=== PATIENT | male | born 1930 | race Caucasian/White ===

== ENCOUNTER 2018-01-08 16:28 | Inpatient (IN) | payer MEDICARE, OTHER ==
[~2018-01-08] VITALS: Ht 162.6 cm; Wt 48.8 kg
--- NOTE | 2018-01-08 17:40 | PD ---
HPI Chief Complaint: Psychiatric Time Seen by Provider: 17:22 Travel History International Travel<30 days: No Contact w/Intl Traveler<30days: No Traveled to known affect area: No History of Present Illness HPI 87-year-old male was brought in by Police Department for psychiatric evaluation. Patient was reportedly Bajwa acted. Patient's states that patient has history of dementia and hypertension. Patient has not taken his medications for the past few months. Patient has been combative and threatening behavior to his Since September last year. Patient's moved out. Patient lives alone by himself. Patient lis came in town today. Patient's zakon and patient's came to see the patient today and patient was combative and threatening to both of them. Police Department was called. Patient was Bajwa acted and brought in for evaluation. No reported alcohol or drug abuse. Patient is not on any routine medication. [facility] Social History Tobacco Use: No Allergies-Medications (Allergen,Severity, Reaction): Coded Allergies: No Known Allergies (Unverified , 01/08/18) Reported Meds & Prescriptions Reported Meds & Active Scripts Active Reported Lorazepam 0.5 Mg Tab 0.5 Mg PO Q6H PRN Review of Systems General / Constitutional: No: Fever Eyes: No: Visual changes HENT: No: Headaches Cardiovascular: No: Chest Pain or Discomfort Respiratory: No: Shortness of Breath Gastrointestinal: No: Abdominal Pain Genitourinary: No: Dysuria Musculoskeletal: No: Pain Skin: No Rash Neurologic: No: Weakness Psychiatric: No: Depression Endocrine: No: Polydipsia Hematologic/Lymphatic: No: Easy Bruising Physical Exam Narrative GENERAL: Well-nourished, well-developed patient. SKIN: Focused skin assessment warm/dry. HEAD: Normocephalic. EYES: No scleral icterus. No injection or drainage. Pupils 2 mm equal reactive. NECK: Supple, trachea midline. No JVD or lymphadenopathy. CARDIOVASCULAR: Regular rate and rhythm without murmurs, gallops, or rubs. RESPIRATORY: Breath sounds equal bilaterally. No accessory muscle use. GASTROINTESTINAL: Abdomen soft, non-tender, nondistended. MUSCULOSKELETAL: No cyanosis, or edema. BACK: Nontender without obvious deformity. No CVA tenderness. Neurologic exam: Patient knows his name. Patient is confused about her location and date. Patient moves all extremity well. No obvious focal neurological deficit. Data Data Last Documented VS Vital Signs Date Time Temp Pulse Resp B/P (MAP) Pulse Ox O2 Delivery O2 Flow Rate FiO2 01/08/18 18:26 75 16 175/79 (111) 100 Room Air Orders Orders Complete Blood Count With Diff (01/08/18 17:26) Comprehensive Metabolic Panel (01/08/18 17:26) Thyroid Stimulating Hormone (01/08/18 17:26) Urinalysis - C+S If Indicated (01/08/18 17:26) Psych Screen (01/08/18 17:26) Drug Screen, Random Urine (01/08/18 17:26) Haloperidol Inj (Haldol Inj) (01/08/18 18:00) Lorazepam Inj (Ativan Inj) (01/08/18 18:00) Admit Order (Ed Use Only) (01/08/18 21:03) Labs Laboratory Tests Test 01/08/18 19:50 White Blood Count 5.1 TH/MM3 Red Blood Count 4.61 MIL/MM3 Hemoglobin 14.5 GM/DL Hematocrit 43.3 % Mean Corpuscular Volume 93.9 FL Mean Corpuscular Hemoglobin 31.4 PG Mean Corpuscular Hemoglobin Concent 33.4 % Red Cell Distribution Width 13.2 % Platelet Count 195 TH/MM3 Mean Platelet Volume 8.7 FL Neutrophils (%) (Auto) 61.3 % Lymphocytes (%) (Auto) 23.8 % Monocytes (%) (Auto) 13.0 % Eosinophils (%) (Auto) 1.5 % Basophils (%) (Auto) 0.4 % Neutrophils # (Auto) 3.1 TH/MM3 Lymphocytes # (Auto) 1.2 TH/MM3 Monocytes # (Auto) 0.7 TH/MM3 Eosinophils # (Auto) 0.1 TH/MM3 Basophils # (Auto) 0.0 TH/MM3 CBC Comment DIFF FINAL Differential Comment Blood Urea Nitrogen 22 MG/DL Creatinine 0.92 MG/DL Random Glucose 81 MG/DL Total Protein 7.7 GM/DL Albumin 4.1 GM/DL Calcium Level 9.3 MG/DL Alkaline Phosphatase 44 U/L Aspartate Amino Transf (AST/SGOT) 18 U/L Alanine Aminotransferase (ALT/SGPT) 16 U/L Total Bilirubin 0.9 MG/DL Sodium Level 137 MEQ/L Potassium Level 3.8 MEQ/L Chloride Level 99 MEQ/L Carbon Dioxide Level 29.1 MEQ/L Anion Gap 9 MEQ/L Estimat Glomerular Filtration Rate 78 ML/MIN Thyroid Stimulating Hormone 3rd Gen 2.930 uIU/ML MDM Medical Decision Making Medical Screen Exam Complete: Yes Emergency Medical Condition: Yes Interpretation(s) 2056. CBC within normal limits. CMP within normal limits. TSH normal. Differential Diagnosis Differential diagnosis including dementia, psychosis, schizophrenia. Narrative Course 87-year-old male was Bajwa acted for combative, threatening behavior to the family members. Patient has history of dementia and hypertension. Patient is not on any medication. 2056. Patient is medically cleared for psychiatric evaluation. Alex Frank MD Jan 08, 2018 17:40
[2018-01-08] MEDS ORDERED: HALOPERIDOL LACTATE 5 MG/ML AMP IM ONE (18:00)
[2018-01-08] MEDS ORDERED: LORazepam 2 MG/ML VIAL IM ONE (18:00)
[2018-01-08] MEDS ORDERED: LORA0.5T PO (18:16)
[2018-01-08 18:26] VITALS: BP 175/79; PULSE 75; RESP 16; O2SAT 100
[2018-01-08 20:20] LABS: AUTOMATED NEUTROPHIL # 3.1 TH/MM3 (1.8-7.7); BASOPHIL % 0.4 % (0.0-2.0); EOSINOPHIL # 0.1 TH/MM3 (0-0.4); EOSINOPHIL % 1.5 % (0.0-4.0); HEMATOCRIT 43.3 % (39.0-51.0); HEMOGLOBIN 14.5 GM/DL (13.0-17.0); LYMPH % 23.8 % (9.0-44.0); LYMPHOCYTE # 1.2 TH/MM3 (1.0-4.8); MEAN CELL VOLUME 93.9 FL (80.0-100.0); MEAN CORPUSCULAR HEMOGLOBIN 31.4 PG (27.0-34.0); MEAN CORPUSCULAR HGB CONC 33.4 % (32.0-36.0); MEAN PLATELET VOLUME 8.7 FL (7.0-11.0); MONOCYTE # 0.7 TH/MM3 (0-0.9); NEUT % 61.3 % (16.0-70.0); PLATELET COUNT 195 TH/MM3 (150-450); RED BLOOD COUNT 4.61 MIL/MM3 (4.50-5.90); RED CELL DISTRIBUTION WIDTH 13.2 % (11.6-17.2); WHITE BLOOD COUNT 5.1 TH/MM3 (4.0-11.0)
[2018-01-08 20:36] LABS: ALBUMIN 4.1 GM/DL (3.4-5.0); AST (GOT) 18 U/L (15-37); BICARBONATE 29.1 MEQ/L (21.0-32.0); BLOOD UREA NITROGEN 22 MG/DL (7-18); CALCIUM 9.3 MG/DL (8.5-10.1); CHLORIDE 99 MEQ/L (98-107); CREATININE 0.92 MG/DL (0.60-1.30); GLOMERULAR FILTRATION RATE 78 ML/MIN (>89); GLUCOSE,RANDOM 81 MG/DL (74-106); SODIUM (NA) 137 MEQ/L (136-145)
[2018-01-08 20:37] LABS: ALT (GPT) 16 U/L (12-78)
[2018-01-08 20:46] LABS: ALKALINE PHOSPHATASE 44 U/L (45-117); TOTAL BILIRUBIN ADULT 0.9 MG/DL (0.2-1.0); TOTAL PROTEIN 7.7 GM/DL (6.4-8.2)
[2018-01-08 21:58] LABS: AMORPHOUS SEDIMENT, URINE RARE; BILIRUBIN, URINE NEG (NEG); BLOOD, URINE NEG (NEG); GLUCOSE,URINE NEG (NEG); KETONE, URINE 40 mg/dL (NEG); MUCUS URINE FEW /lpf (OCC); NITRITE,URINE NEG (NEG); SQUAMOUS EPITHELIAL CELL URINE 1 /hpf (0-5); URINE COLOR YELLOW (YELLW/STRAW); URINE LEUKOCYTE ESTERASE NEG (NEG)
[2018-01-08] MEDS ORDERED: LORazepam 0.5 MG TAB age > 65 yrs PO PRN (22:30)
[2018-01-08] MEDS ORDERED: ALUMINUM/MAGNESIUM/SIMETH 30 ML CUP PO PRN (22:30)
[2018-01-08] MEDS ORDERED: MAGNESIUM HYDROXIDE SUSP 30 ML CUP PO PRN (22:30)
[2018-01-08] MEDS ORDERED: LORazepam 2 MG/ML VIAL - age > 65 yrs IM PRN (22:30)
[2018-01-08] MEDS ORDERED: ACETAMINOPHEN 325 MG TAB PO PRN (22:30)
[2018-01-08 22:33] VITALS: BP 137/69; PULSE 71; RESP 19; TEMP 98.1; O2SAT 99
[2018-01-09 05:55] VITALS: BP 141/72; PULSE 69; RESP 19; TEMP 98.1; O2SAT 96
[2018-01-09 11:59] LABS: CHOLESTEROL 180 MG/DL (120-200); TRIGLYCERIDES 89 MG/DL (42-150)
[2018-01-09 12:00] LABS: CHOLESTEROL/ HDL RATIO 2.78 RATIO; HDL CHOLESTEROL 64.7 MG/DL (40.0-60.0); LDL CHOLESTEROL 98 MG/DL (0-99)
--- NOTE | 2018-01-09 12:18 | HHI.HP ---
Provisional Diagnosis Admission Date Jan 08, 2018 at 21:04 [place] I. Dementia and other disease with behavioral disturbance FiO2 0.81, Alzheimer's disease late onset g 30.1 Certification of Person's Competence To Provide Express and Informed Consent I have personally examined Hossein Bond , a person being served at [facility] on, Jan 09, 2018 12:04. Express and informed consent means consent voluntarily given in writing, by a competent person, after sufficient explanation and disclosure of the subject matter involved to enable the person to make a knowing and willful decision without any element of force, fraud, deceit, duress, or other form of constraint or coercion. This person is 18 years of age or older, is not now known to be incompetent to consent to treatment with a guardian advocate, and does not have a health care surrogate or proxy currently making medical treatment decisions. I have found this person to be one of the following: [] Competent to provide express and informed consent, as defined above, for voluntary admission to this facility and is competent to provide express and informed consent for treatment. He/she has the consistent capacity to make well reasoned, willful, and knowing decisions concerning his or her medical or mental health treatment. The person fully and consistently understands the purpose of the admission for examination/placement and is fully capable of personally exercising all rights [place]xxxx] Incompetent to provide express and informed consent to voluntary admission, and this is incompetent to provide express and informed consent to treatment. The person must be transferred to involuntary status and a petition for a guardian advocate filed with the Circuit Court. [] Refusing to provide express and informed consent to voluntary admission but is competent to provide express and informed consent for treatment. The person must be discharged or transferred to involuntary status. Form shall be completed within 24 hours of a person's arrival at the receiving facility and filed in the clinical record of each person: 1. Admitted on a voluntary basis 2. Permitted to provide express and informed consent to his/her own treatment 3. Allowed to transfer from involuntary to voluntary status 4. Prior to permitting a person to consent to his or her own treatment after having been previously found incompetent to consent to treatment. History of Present Illness Capacity: Lacks Capacity Psych Chief Complaint: patient demented with assaultive behavior HPI Patient is an 87-year-old male who comes her under Bajwa act. That states "court ordered". It appears there is a court order allowing patient's what appears is his guardian have him placed in a local custodial. However I also appears patient has been showing increased confusion and his home. This has been going on for a period of time and was serious enough and threatening enough the patient's that she did move out. However she and a son came back to the home of the patient is living and notices to be marked disarray nearly uninhabitable. And the patient more confused aggressive towards his . Patient seen screened in the ED, urine toxicology negative. Patient medically 2600. Patient seen on the unit with nurse Lizzy. Is a thin slender somewhat disheveled male sitting in Lisa chair he is alert oriented only to self angry irritable demanding to be discharged being quite disrespectful and somewhat scatological towards his . He does not remember any significant behaviors that led to this hospitalization. It appears she has been carrying a diagnosis of dementia for a period of time. There is no further history with this patient of alcohol or drug use, past psychiatric history. We do need to contact patient's family to gain further information. Thus at this time patient does meet criteria for involuntary psychiatric hospitalization of the Bajwa act I'll do first opinion request second opinion. I feel patient does not have capacity thus I'll ask for healthcare surrogate and a guardian advocate. We will have hospitalist also consult with us. Review of Systems ROS Limitations: Altered Mental Status Past Psych History Violence risk - others (6 mos) Patient is been aggressive and assaultive towards Violence risk - self (6 mos) Low Substance Abuse History Drugs/Alcohol past 12 months Denies at this time though verification from family would be appreciated Past Family Social History Coded Allergies: No Known Allergies (Unverified , 01/08/18) Reported Medications Lorazepam (Lorazepam) 0.5 Mg Tab, 0.5 MG PO Q6H Y for ANXIETY, TAB 0 Refills 01/08/18 Current Medications Medications (Trade) Dose Ordered Sig/Candice Route Start Time Stop Time Status Last Admin (Ativan) 0.5 mg Q12H PRN PO 01/08/18 22:30 Future Hold (Ativan Inj) 0.5 mg Q12H PRN IM 01/08/18 22:30 Future Hold (Tylenol) 650 mg Q4H PRN PO 01/08/18 22:30 (Milk Of Magnesia Liq) 30 ml DAILY PRN PO 01/08/18 22:30 (Mag-Al Plus Susp Liq) 30 ml Q6H PRN PO 01/08/18 22:30 Family Psych History Unknown at this time due to patient's dementia Social History Patient is but his does live separately due to his aggressive behavior it appears she is been unable to care for himself independently Patient's Strengths (min. 2) Patient with supportive family able to access healthcare Physical Exam Patient medically cleared through ED at the present time patient sitting quietly in Lisa chair in the day room is in no acute distress, is in no respiratory distress, no complaints of abdominal pain. Is moving upper extremities without difficulty does move lower extremities was sitting in Lisa chair Vital Signs Vital Signs Date Time Temp Pulse Resp B/P (MAP) Pulse Ox O2 Delivery O2 Flow Rate FiO2 01/09/18 05:55 98.1 69 19 141/72 (95) 96 01/08/18 18:26 Room Air Lab Results Test 01/08/18 19:50 01/08/18 21:15 01/09/18 10:10 White Blood Count 5.1 TH/MM3 Red Blood Count 4.61 MIL/MM3 Hemoglobin 14.5 GM/DL Hematocrit 43.3 % Mean Corpuscular Volume 93.9 FL Mean Corpuscular Hemoglobin 31.4 PG Mean Corpuscular Hemoglobin Concent 33.4 % Red Cell Distribution Width 13.2 % Platelet Count 195 TH/MM3 Mean Platelet Volume 8.7 FL Neutrophils (%) (Auto) 61.3 % Lymphocytes (%) (Auto) 23.8 % Monocytes (%) (Auto) 13.0 % Eosinophils (%) (Auto) 1.5 % Basophils (%) (Auto) 0.4 % Neutrophils # (Auto) 3.1 TH/MM3 Lymphocytes # (Auto) 1.2 TH/MM3 Monocytes # (Auto) 0.7 TH/MM3 Eosinophils # (Auto) 0.1 TH/MM3 Basophils # (Auto) 0.0 TH/MM3 CBC Comment DIFF FINAL Differential Comment Blood Urea Nitrogen 22 MG/DL Creatinine 0.92 MG/DL Random Glucose 81 MG/DL Total Protein 7.7 GM/DL Albumin 4.1 GM/DL Calcium Level 9.3 MG/DL Alkaline Phosphatase 44 U/L Aspartate Amino Transf (AST/SGOT) 18 U/L Alanine Aminotransferase (ALT/SGPT) 16 U/L Total Bilirubin 0.9 MG/DL Sodium Level 137 MEQ/L Potassium Level 3.8 MEQ/L Chloride Level 99 MEQ/L Carbon Dioxide Level 29.1 MEQ/L Anion Gap 9 MEQ/L Estimat Glomerular Filtration Rate 78 ML/MIN Thyroid Stimulating Hormone 3rd Gen 2.930 uIU/ML Urine Color YELLOW Urine Turbidity CLEAR Urine pH 5.0 Urine Specific [place] 1.022 Urine Protein NEG mg/dL Urine Glucose (UA) NEG mg/dL Urine Ketones 40 mg/dL Urine Occult Blood NEG Urine Nitrite NEG Urine Bilirubin NEG Urine Urobilinogen LESS THAN 2.0 MG/DL Urine Leukocyte Esterase NEG Urine RBC 1 /hpf Urine WBC 1 /hpf Urine Squamous Epithelial Cells 1 /hpf Urine Amorphous Sediment RARE Urine Mucus FEW /lpf Microscopic Urinalysis Comment CULT NOT INDICATED Urine Opiates Screen NEG Urine Barbiturates Screen NEG Urine Amphetamines Screen NEG Urine Benzodiazepines Screen NEG Urine Cocaine Screen NEG Urine Cannabinoids Screen NEG Triglycerides Level 89 MG/DL Cholesterol Level 180 MG/DL LDL Cholesterol 98 MG/DL HDL Cholesterol 64.7 MG/DL Cholesterol/HDL Ratio 2.78 RATIO Mental Status Examination Appearance: Disheveled Consciousness: Alert Orientation: Person (vaguely) Motor Activity: Other (patient sitting in Lisa chair) Speech: Hesitant Language: Other (sparse) Fund of Knowledge: Poor Attention and Concentration: Easily Distracted Memory: Impaired Mood: Irritable Affect: Other (slight increase in range and intensity) Thought Process & Associations: Disorganized Thought Content: Bizarre thinking Hallucination Type: None Delusion Type: None Suicidal Ideation: No Suicidal Plan: No Suicidal Intention: No Homicidal Ideation: No Homicidal Plan: No Homicidal Intention: No Insight: Poor Judgment: Poor Assessment & Plan Problem List: (1) DEMENTIA IN OTH DISEASES CLASSD ELSWHR W BEHAVIORAL DISTURB ICD Codes: F02.81 - DEMENTIA IN OTH DISEASES CLASSD ELSWHR W BEHAVIORAL DISTURB (2) ALZHEIMER'S DISEASE WITH LATE ONSET ICD Codes: G30.1 - ALZHEIMER'S DISEASE WITH LATE ONSET Assessment & Plan Estimated LOS 5-7 days this time patient meets Bajwa criteria I'll do first opinion request second opinion, I also feel he does not have capacity thus I'll ask for healthcare surrogate and guardian advocate. We will have hospitalist's consult with us. Also PT and OT. Will need to give further information from patient's concerning patient's history behaviors and placement issues Discharge Planning To be determined after consultation with family Request HC Surrog/Guard Advoc?: Yes Sujit Kinsey MD Jan 09, 2018 12:18
[2018-01-09] MEDS ORDERED: cloNIDine HCL 0.1 MG TAB PO PRN (12:30)
--- NOTE | 2018-01-09 13:36 | PD.CONS ---
HPI Service [facility] Consult Requested By Dr. Sujit Kinsey Reason for Consult Help with medical management Primary Care Physician Elpidio Shukla M.D. Diagnoses: (1) Hypertension (2) ALZHEIMER'S DISEASE WITH LATE ONSET (3) DEMENTIA IN OTH DISEASES CLASSD ELSWHR W BEHAVIORAL DISTURB History of Present Illness Patient is an 87-year-old male who was brought in initially under Bajwa act that was court ordered. Patient has an increasing confusion and altered mental status. Per chart review it appears that he has dementia. And had been having aggressive behavior Has history of hypertension and dementia per chart review Was not on any current medications prior to coming into the hospital per chart review Review of Systems ROS Limitations: Altered Mental Status, Poor Historian Constitutional: DENIES: Diaphoretic episodes, Fatigue, Fever, Weight gain, Weight loss, Chills, Dizziness Endocrine: DENIES: Heat/cold intolerance, Polydipsia Eyes: DENIES: Blurred vision Ears, nose, mouth, throat: DENIES: Tinnitus, Hearing loss Respiratory: DENIES: Apneas, Cough, Snoring Cardiovascular: DENIES: Chest pain, Palpitations, Syncope Gastrointestinal: DENIES: Abdominal pain, Black stools Genitourinary: DENIES: Sexual dysfunction, Urinary frequency Musculoskeletal: DENIES: Joint pain, Muscle aches, Stiffness Integumentary: DENIES: Abnormal pigmentation, Nail changes Hematologic/lymphatic: DENIES: Bruising, Lymphadenopathy Immunologic/allergic: DENIES: Eczema, Urticaria Neurologic: DENIES: Abnormal gait, Headache, Localized weakness Psychiatric: COMPLAINS OF: Anxiety, Confusion, Mood changes, Agitation, DENIES : Depression, Hallucinations, Suicidal Ideation, Homicidal Ideation Past Family Social History Allergies: Coded Allergies: No Known Allergies (Unverified , 01/08/18) Past Medical History Hypertension and dementia per chart review Past Surgical History Unknown not obtainable from patient Reported Medications Reported Meds & Active Scripts Active Reported Lorazepam 0.5 Mg Tab 0.5 Mg PO Q6H PRN Active Ordered Medications Current Medications Haloperidol Lactate (Haldol Inj) 5 mg ONCE ONCE IM Last administered on at 19:59; Start 01/08/18 at 18:00; Stop 01/08/18 at 18:01; Status DC Lorazepam (Ativan Inj) 2 mg ONCE ONCE IM Last administered on 01/08/18at 19:59 ; Start 01/08/18 at 18:00; Stop 01/08/18 at 18:01; Status DC Lorazepam (Ativan) 0.5 mg Q12H PRN PO MODERATE TO SEVERE ANXIETY; Start at 22:30; Status Future Hold Lorazepam (Ativan Inj) 0.5 mg Q12H PRN IM MODERATE TO SEVERE ANXIETY; Start at 22:30; Status Future Hold Acetaminophen (Tylenol) 650 mg Q4H PRN PO Pain 1-5 or Temp >101F; Start at 22:30 Magnesium Hydroxide (Milk Of Magnesia Liq) 30 ml DAILY PRN PO CONSTIPATION; Start 01/08/18 at 22:30 Al Hydrox/Mg Hydrox/Simethicone (Mag-Al Plus Susp Liq) 30 ml Q6H PRN PO DYSPEPSIA; Start 01/08/18 at 22:30 Trazodone HCl (Desyrel) 50 mg HS PRN PO INSOMNIA; Start 01/09/18 at 12:00 Clonidine (Catapres) 0.1 mg Q4H PRN PO SBP>160, DBP>90; Start 01/09/18 at 12:30 Family History Unknown patient not able to give any information Both mother and father are Social History Does not smoke does not drink denies any illicit Physical Exam Vital Signs Vital Signs Date Time Temp Pulse Resp B/P (MAP) Pulse Ox O2 Delivery O2 Flow Rate FiO2 01/09/18 05:55 98.1 69 19 141/72 (95) 96 01/08/18 22:33 98.1 71 19 137/69 (91) 99 01/08/18 18:26 75 16 175/79 (111) 100 Room Air Physical Exam GENERAL: This is a well-nourished, well-developed patient, in no apparent distress. Patient is sitting in a Lisa chair at this time SKIN: No rashes, ecchymoses or lesions. Cool and dry. HEAD: Atraumatic. Normocephalic. No temporal or scalp tenderness. EYES: Pupils equal round and reactive. Extraocular motions intact. No scleral icterus. No injection or drainage. ENT: Nose without bleeding, purulent drainage or septal hematoma. Throat without erythema, tonsillar hypertrophy or exudate. Uvula midline. Airway patent. NECK: Trachea midline. No JVD or lymphadenopathy. Supple, nontender, no meningeal signs. CARDIOVASCULAR: Regular rate and rhythm without murmurs, gallops, or rubs. RESPIRATORY: Clear to auscultation. Breath sounds equal bilaterally. No wheezes , rales, or rhonchi. GASTROINTESTINAL: Abdomen soft, non-tender, nondistended. No hepato-splenomegaly , or palpable masses. No guarding. MUSCULOSKELETAL: Extremities without clubbing, cyanosis, or edema. No joint tenderness, effusion, or edema noted. No calf tenderness. Negative Homans sign bilaterally. NEUROLOGICAL: Awake and alert. Cranial nerves II through XII intact. Motor and sensory grossly within normal limits. Five out of 5 muscle strength in all muscle groups. Normal speech. Patient is quite demented and altered and not able to answer questions appropriately Insight and judgment is abnormal Mood and behavior is abnormal Laboratory Laboratory Tests Test 01/08/18 19:50 01/08/18 21:15 01/09/18 10:10 White Blood Count 5.1 Red Blood Count 4.61 Hemoglobin 14.5 Hematocrit 43.3 Mean Corpuscular Volume 93.9 Mean Corpuscular Hemoglobin 31.4 Mean Corpuscular Hemoglobin Concent 33.4 Red Cell Distribution Width 13.2 Platelet Count 195 Mean Platelet Volume 8.7 Neutrophils (%) (Auto) 61.3 Lymphocytes (%) (Auto) 23.8 Monocytes (%) (Auto) 13.0 Eosinophils (%) (Auto) 1.5 Basophils (%) (Auto) 0.4 Neutrophils # (Auto) 3.1 Lymphocytes # (Auto) 1.2 Monocytes # (Auto) 0.7 Eosinophils # (Auto) 0.1 Basophils # (Auto) 0.0 CBC Comment DIFF FINAL Differential Comment Blood Urea Nitrogen 22 Creatinine 0.92 Random Glucose 81 Total Protein 7.7 Albumin 4.1 Calcium Level 9.3 Alkaline Phosphatase 44 Aspartate Amino Transf (AST/SGOT) 18 Alanine Aminotransferase (ALT/SGPT) 16 Total Bilirubin 0.9 Sodium Level 137 Potassium Level 3.8 Chloride Level 99 Carbon Dioxide Level 29.1 Anion Gap 9 Estimat Glomerular Filtration Rate 78 Thyroid Stimulating Hormone 3rd Gen 2.930 Urine Color YELLOW Urine Turbidity CLEAR Urine pH 5.0 Urine Specific [place] 1.022 Urine Protein NEG Urine Glucose (UA) NEG Urine Ketones 40 Urine Occult Blood NEG Urine Nitrite NEG Urine Bilirubin NEG Urine Urobilinogen LESS THAN 2.0 Urine Leukocyte Esterase NEG Urine RBC 1 Urine WBC 1 Urine Squamous Epithelial Cells 1 Urine Amorphous Sediment RARE Urine Mucus FEW Microscopic Urinalysis Comment CULT NOT INDICATED Urine Opiates Screen NEG Urine Barbiturates Screen NEG Urine Amphetamines Screen NEG Urine Benzodiazepines Screen NEG Urine Cocaine Screen NEG Urine Cannabinoids Screen NEG Triglycerides Level 89 Cholesterol Level 180 LDL Cholesterol 98 HDL Cholesterol 64.7 Cholesterol/HDL Ratio 2.78 Result Diagram: 01/08/18 1950 01/08/18 1950 Assessment and Plan Assessment and Plan Advanced dementia currently under a Bajwa act will defer to psychiatry Hypertension by history on unknown medications will start on Catapres as needed for blood pressure Try to obtain a home medications and history from family Discussed with RN Patient does not have the capacity to discuss his medical history Increasing confusion We will get a.m. labs and monitor throughout the admission Code Status Full code Discussed Condition With RN and patient unfortunately patient does not have much insight Matt Theodore DO Jan 09, 2018 13:36
[2018-01-09 18:00] VITALS: BP 157/66; PULSE 68; RESP 18; TEMP 97.6; O2SAT 100
[2018-01-09] MEDS ORDERED: LORazepam 2 MG/ML VIAL ONE (18:48)
[2018-01-09 21:00] VITALS: BP 163/71; PULSE 73; RESP 22; TEMP 98; O2SAT 100
[2018-01-09 22:00] VITALS: BP 170/80; PULSE 65; RESP 16; TEMP 97.8; O2SAT 99
--- NOTE | 2018-01-09 22:20 | RADRPT ---
EXAM DATE/TIME: 01/09/2018 21:38 [facility] COMPARISON: No previous studies available for comparison. INDICATIONS : Patient fell , bruising on lateral side of right knee. MEDICAL HISTORY : unobtainable SURGICAL HISTORY : unobtainable ENCOUNTER: Initial ACUITY: 1 day PAIN SCORE: 4/10 LOCATION: Right knee FINDINGS: Two view examination of the right knee demonstrates no evidence of fracture or dislocation. Bony min eralization is normal. The suprapatellar soft tissues have a normal configuration. Vascular calcific ations are seen. There is a smaller calcification seen inferior to the patella. CONCLUSION: No acute abnormality seen. Sujit Loving MD on January 09, 2018 at 22:17 Board Certified Radiologist. This report was verified electronically.
--- NOTE | 2018-01-09 22:20 | RADRPT ---
EXAM DATE/TIME: 01/09/2018 21:40 [facility] COMPARISON: No previous studies available for comparison. INDICATIONS : Patient fell,pain and skin tear on right elbow. MEDICAL HISTORY : unobtainable SURGICAL HISTORY : unobtainable ENCOUNTER: Initial ACUITY: 1 day PAIN SCORE: 4/10 LOCATION: Right elbow FINDINGS: Two view examination of the right elbow demonstrates no soft tissue swelling, joint effusion, fractur e or dislocation. Bony mineralization is normal. CONCLUSION: No acute disease. Sujit Loving MD on January 09, 2018 at 22:18 Board Certified Radiologist. This report was verified electronically.
--- NOTE | 2018-01-09 22:26 | RADRPT ---
EXAM DATE/TIME: 01/09/2018 21:45 [place] COMPARISON: No previous studies available for comparison. INDICATIONS : Trauma; fall, right laceration. RADIATION DOSE: 56.35 CTDIvol (mGy) MEDICAL HISTORY : Dementia. SURGICAL HISTORY : None. ENCOUNTER: Initial ACUITY: 1 day PAIN SCALE: 4/10 LOCATION: cranial TECHNIQUE: Multiple contiguous axial images were obtained of the head. Using automated exposure control and adj ustment of the mA and/or kV according to patient size, radiation dose was kept as low as reasonably a chievable to obtain optimal diagnostic quality images. DICOM format image data is available electro nically for review and comparison. FINDINGS: CEREBRUM: The ventricles and cortical sulci are widened. There is extensive low-density seen throughout the cer ebral white matter. No evidence of midline shift, mass lesion, hemorrhage or acute infarction. No e xtra-axial fluid collections are seen. POSTERIOR FOSSA: The cerebellum and brainstem are intact. The 4th ventricle is midline. The cerebellopontine angle i s unremarkable. EXTRACRANIAL: The visualized portion of the orbits is intact. SKULL: The calvaria is intact. No evidence of skull fracture. CONCLUSION: 1. No acute abnormality. 2. Atrophy. 3. Suspected widespread small vessel ischemic change in the white matter. Sujit Loving MD on January 09, 2018 at 22:23 Board Certified Radiologist. This report was verified electronically.
[2018-01-09 22:40] LABS: HEMOGLOBIN A1C 5.1 % (4.3-6.0)
[2018-01-09 23:00] VITALS: BP 143/66; PULSE 56; RESP 16; TEMP 97.7; O2SAT 98
[2018-01-10] VITALS: BP 135/67; PULSE 63; RESP 16; TEMP 97.4; O2SAT 98
[2018-01-10 05:53] VITALS: BP 129/68; PULSE 81; RESP 16; TEMP 97.6; O2SAT 98
[2018-01-10 07:07] LABS: AUTOMATED NEUTROPHIL # 3.1 TH/MM3 (1.8-7.7); BASOPHIL % 0.4 % (0.0-2.0); EOSINOPHIL # 0.1 TH/MM3 (0-0.4); EOSINOPHIL % 2.5 % (0.0-4.0); HEMATOCRIT 44.5 % (39.0-51.0); HEMOGLOBIN 15.1 GM/DL (13.0-17.0); LYMPH % 22.6 % (9.0-44.0); LYMPHOCYTE # 1.1 TH/MM3 (1.0-4.8); MEAN CELL VOLUME 93.8 FL (80.0-100.0); MEAN CORPUSCULAR HEMOGLOBIN 31.8 PG (27.0-34.0); MEAN CORPUSCULAR HGB CONC 33.9 % (32.0-36.0); MEAN PLATELET VOLUME 8.4 FL (7.0-11.0); MONO % 13.1 % (0.0-8.0); MONOCYTE # 0.7 TH/MM3 (0-0.9); NEUT % 61.4 % (16.0-70.0); PLATELET COUNT 196 TH/MM3 (150-450); RED BLOOD COUNT 4.75 MIL/MM3 (4.50-5.90)
[2018-01-10 07:41] LABS: ALBUMIN 3.8 GM/DL (3.4-5.0); AST (GOT) 24 U/L (15-37); BICARBONATE 30.2 MEQ/L (21.0-32.0); BLOOD UREA NITROGEN 17 MG/DL (7-18); CHLORIDE 104 MEQ/L (98-107); GLOMERULAR FILTRATION RATE 80 ML/MIN (>89); GLUCOSE,RANDOM 92 MG/DL (74-106); MAGNESIUM 2.6 MG/DL (1.5-2.5); SODIUM (NA) 141 MEQ/L (136-145)
[2018-01-10 07:42] LABS: ALT (GPT) 17 U/L (12-78)
[2018-01-10 07:50] LABS: ALKALINE PHOSPHATASE 46 U/L (45-117); FREE T4 1.27 NG/DL (0.76-1.46); TOTAL BILIRUBIN ADULT 1.2 MG/DL (0.2-1.0); TOTAL PROTEIN 7.4 GM/DL (6.4-8.2)
[2018-01-10 14:55] LABS: HEMOGLOBIN A1C 5.1 % (4.3-6.0)
--- NOTE | 2018-01-10 15:20 | HHI.PYPN ---
Subjective Chief Complaint: patient demented with assaultive behavior Remarks Patient seen in day room with nurse Félix, chart reviewed patient compliant medications, patient discussed with nurse. Patient calm pleasant diffusely confused. Or room considering patient's past history with aggressiveness assaultive behavior I feel the addition of a small dose of Seroquel would be appropriate we'll start him on 12.5 mg in a.m. 2 PM and 8 PM. He does denies suicidality of voices though he is oriented only to person Review of Systems Except as stated in HPI: all other systems reviewed are Neg Mental Status Examination Appearance: Disheveled Consciousness: Alert Orientation: Person (vaguely) Motor Activity: Other (patient sitting in Lisa chair) Speech: Hesitant Language: Other (sparse) Fund of Knowledge: Poor Attention and Concentration: Easily Distracted Memory: Impaired Mood: Irritable Affect: Other (slight increase in range and intensity) Thought Process & Associations: Disorganized Thought Content: Bizarre thinking Hallucination Type: None Delusion Type: None Suicidal Ideation: No Suicidal Plan: No Suicidal Intention: No Homicidal Ideation: No Homicidal Plan: No Homicidal Intention: No Insight: Poor Judgment: Poor Results Labs Test 01/10/18 06:44 01/10/18 06:49 Blood Urea Nitrogen 17 MG/DL Creatinine 0.90 MG/DL Random Glucose 92 MG/DL Total Protein 7.4 GM/DL Albumin 3.8 GM/DL Calcium Level 9.0 MG/DL Phosphorus Level 3.0 MG/DL Magnesium Level 2.6 MG/DL Alkaline Phosphatase 46 U/L Aspartate Amino Transf (AST/SGOT) 24 U/L Alanine Aminotransferase (ALT/SGPT) 17 U/L Total Bilirubin 1.2 MG/DL Sodium Level 141 MEQ/L Potassium Level 3.8 MEQ/L Chloride Level 104 MEQ/L Carbon Dioxide Level 30.2 MEQ/L Anion Gap 7 MEQ/L Estimat Glomerular Filtration Rate 80 ML/MIN Free Thyroxine 1.27 NG/DL Thyroid Stimulating Hormone 3rd Gen 1.880 uIU/ML White Blood Count 5.0 TH/MM3 Red Blood Count 4.75 MIL/MM3 Hemoglobin 15.1 GM/DL Hematocrit 44.5 % Mean Corpuscular Volume 93.8 FL Mean Corpuscular Hemoglobin 31.8 PG Mean Corpuscular Hemoglobin Concent 33.9 % Red Cell Distribution Width 13.0 % Platelet Count 196 TH/MM3 Mean Platelet Volume 8.4 FL Neutrophils (%) (Auto) 61.4 % Lymphocytes (%) (Auto) 22.6 % Monocytes (%) (Auto) 13.1 % Eosinophils (%) (Auto) 2.5 % Basophils (%) (Auto) 0.4 % Neutrophils # (Auto) 3.1 TH/MM3 Lymphocytes # (Auto) 1.1 TH/MM3 Monocytes # (Auto) 0.7 TH/MM3 Eosinophils # (Auto) 0.1 TH/MM3 Basophils # (Auto) 0.0 TH/MM3 CBC Comment DIFF FINAL Differential Comment Vitals/IOs Vital Signs Date Time Temp Pulse Resp B/P (MAP) Pulse Ox O2 Delivery O2 Flow Rate FiO2 01/10/18 05:53 97.6 81 16 129/68 (88) 98 01/08/18 18:26 Room Air Assessment & Plan Problem List: (1) DEMENTIA IN OTH DISEASES CLASSD ELSWHR W BEHAVIORAL DISTURB ICD Codes: F02.81 - DEMENTIA IN OTH DISEASES CLASSD ELSWHR W BEHAVIORAL DISTURB (2) ALZHEIMER'S DISEASE WITH LATE ONSET ICD Codes: G30.1 - ALZHEIMER'S DISEASE WITH LATE ONSET Assessment & Plan Estimated LOS: days patient is confused and demented, though no behavior problems noted so far. See medication adjustment above Justification for Cont. Inpt. At this time patient decompensate if not placed in an appropriate level of care Discharge Planning To be determined Request HC Surrog/Guard Advoc?: Yes Sujit Kinsey MD Jan 10, 2018 15:20
[2018-01-10] MEDS ORDERED: PILL SPLITTER OTHER PRN (15:30)
[2018-01-10 15:35] VITALS: BP 130/98
--- NOTE | 2018-01-10 16:31 | HHI.PR ---
Subjective Remarks Follow-up visit dementia, HTN. Patient seen and examined today sitting in a chair. Patient states he is doing okay. Patient went on with story that he has met [facility] in [place]. Patient also complains of a skin tag on his left lateral side. When asked if he wants it to be surgically removed patient states "you do not do that to you?." Discussed that he will be referred to dermatology in outpatient for further evaluation. As per nursing, patient's blood pressure has been elevated. Denies SOB/ dyspnea. Denies chest pain, palpitations, headaches, dizziness. Denies fevers, chills, n/v/d. Objective Vitals Vital Signs Date Time Temp Pulse Resp B/P (MAP) Pulse Ox O2 Delivery O2 Flow Rate FiO2 01/10/18 15:35 130/98 (109) 01/10/18 05:53 97.6 81 16 129/68 (88) 98 01/10/18 00:00 97.4 63 16 135/67 (89) 98 01/09/18 23:00 97.7 56 16 143/66 (91) 98 01/09/18 22:00 97.8 65 16 170/80 (110) 99 01/09/18 21:00 98.0 73 22 163/71 (101) 100 01/09/18 18:00 97.6 68 18 157/66 (96) 100 Result Diagram: 01/10/18 0649 01/10/18 0644 Objective Remarks GENERAL: This is a well-nourished, well-developed patient, in no apparent distress. SKIN: Warm and dry. Left lateral lesion, round, elevated. HEENT: Normocephalic. Pupils equal round and reactive. Nose without bleeding. Airway patent. NECK: Trachea midline. CARDIOVASCULAR: Regular rate and rhythm without murmurs, gallops, or rubs. RESPIRATORY: Clear to auscultation. Breath sounds equal bilaterally. No wheezes , rales, or rhonchi. GASTROINTESTINAL: Abdomen soft, non-tender, nondistended. Bowel Sounds normoactive x4. MUSCULOSKELETAL: Extremities without clubbing, cyanosis, or edema. NEUROLOGICAL: Awake and alert. Oriented to person only. Confuse. Moves all extremities. Normal speech. A/P Problem List: (1) Hypertension ICD Code: I10 - Essential (primary) hypertension (2) ALZHEIMER'S DISEASE WITH LATE ONSET ICD Code: G30.1 - ALZHEIMER'S DISEASE WITH LATE ONSET (3) DEMENTIA IN OTH DISEASES CLASSD ELSWHR W BEHAVIORAL DISTURB ICD Code: F02.81 - DEMENTIA IN OTH DISEASES CLASSD ELSWHR W BEHAVIORAL DISTURB Assessment and Plan An 87-year-old male who was brought in initially under [place] act that was court ordered. Patient has an increasing confusion and altered mental status. He is not admitted to inpatient psychiatry and further evaluation. Consulted for assistance in medical management. Dementia, advanced age -Managed by psychiatry team HTN -Unknown history of HTN however BP trend has been elevated throughout stay -Patient had clonidine as needed -We will start Norvasc 5 mg daily -Monitor BP trend Labs have been reviewed within normal. Hemoglobin A1c 5.1. Cholesterol LDL HDL within normal. DVT prop early ambulation If BP is improved and WNL. Will sign off. Reconsult as needed. Rio Melendez Jan 10, 2018 16:31
[2018-01-10] MEDS: QUEtiapine FUMARATE 25 MG TAB PO SCH (20:50)
[2018-01-11 05:48] VITALS: BP 136/71; PULSE 90; RESP 16; TEMP 97.2; O2SAT 100
[2018-01-11] MEDS: QUEtiapine FUMARATE 25 MG TAB PO SCH ×2 (08:14→21:15)
[2018-01-11] MEDS: amLODIPine BESYLATE 5 MG TAB PO SCH (09:00)
--- NOTE | 2018-01-11 13:22 | HHI.PYPN ---
Subjective Chief Complaint: patient demented with assaultive behavior Remarks Met with patient's and patient's son. And counselor Brianna Patient's is his second who is been to for 48 years. His son is by his first marriage. states that patient show a marked increase in aggression paranoia and anger towards her over the past number of months. Son also verifies this. The also verified that patient is to be a DNR. We also discussed placement. It appears patient will need a more structured environment than can be supplied by [facility]. Patient then seen on unit with nurse Simms, chart reviewed, patient compliant medications, discussed patient with nurse. Patient did have swallow study. The speech therapist his modifying his diet to C for swallowing difficulties. Otherwise patient remains confused though most significant behavior problems. Somewhat focusing on wanting to go home he shows basically no insight into his behaviors Review of Systems Gastrointestinal: COMPLAINS OF: Nausea, Vomiting, Difficulty Swallowing Except as stated in HPI: all other systems reviewed are Neg Mental Status Examination Appearance: Disheveled Consciousness: Alert Orientation: Person (vaguely) Motor Activity: Other (patient sitting in Lisa chair) Speech: Hesitant Language: Other (sparse) Fund of Knowledge: Poor Attention and Concentration: Easily Distracted Memory: Impaired Mood: Irritable Affect: Other (slight increase in range and intensity) Thought Process & Associations: Disorganized Thought Content: Bizarre thinking Hallucination Type: None Delusion Type: None Suicidal Ideation: No Suicidal Plan: No Suicidal Intention: No Homicidal Ideation: No Homicidal Plan: No Homicidal Intention: No Insight: Poor Judgment: Poor Results Vitals/IOs Vital Signs Date Time Temp Pulse Resp B/P (MAP) Pulse Ox O2 Delivery O2 Flow Rate FiO2 01/11/18 05:48 97.2 90 16 136/71 (92) 100 01/08/18 18:26 Room Air Intake and Output 01/11/18 01/11/18 01/12/18 08:00 16:00 00:00 Intake Total 460 ml Balance 460 ml Assessment & Plan Problem List: (1) DEMENTIA IN OTH DISEASES CLASSD ELSWHR W BEHAVIORAL DISTURB ICD Codes: F02.81 - DEMENTIA IN OTH DISEASES CLASSD ELSWHR W BEHAVIORAL DISTURB (2) ALZHEIMER'S DISEASE WITH LATE ONSET ICD Codes: G30.1 - ALZHEIMER'S DISEASE WITH LATE ONSET Assessment & Plan Estimated LOS: days patient remains confused demented though no significant behavioral problems. See adjustments with CODE STATUS , diet, and placement Justification for Cont. Inpt. At this time patient will decompensate and placed a lower level of care Discharge Planning To be determined Request HC Surrog/Guard Advoc?: Yes Sujit Kinsey MD Jan 11, 2018 13:22
[2018-01-11 16:01] VITALS: BP 135/65; PULSE 87; RESP 16; TEMP 97.9; O2SAT 92
[2018-01-11] MEDS: traZODone HCL 50 MG TAB PO PRN (21:16)
[2018-01-12 06:00] VITALS: BP 130/60; PULSE 75; RESP 16; TEMP 98.2; O2SAT 97
[2018-01-12] MEDS: amLODIPine BESYLATE 5 MG TAB PO SCH (09:30)
[2018-01-12] MEDS: QUEtiapine FUMARATE 25 MG TAB PO SCH ×2 (09:31→21:07)
--- NOTE | 2018-01-12 15:04 | HHI.PYPN ---
Subjective Chief Complaint: patient demented with assaultive behavior Remarks Patient was seen and case discussed with nursing. Patient was interviewed in bed. He is alert and oriented 1. He is flat but cooperative during the interview. Grossly confused. He does know his birthdate. His compliant with medications and behaving well on the unit. No aggressive or agitated behavior Mental Status Examination Appearance: Disheveled Consciousness: Alert Orientation: Person (vaguely) Motor Activity: Other (patient sitting in Lisa chair) Speech: Hesitant Language: Other (sparse) Fund of Knowledge: Poor Attention and Concentration: Easily Distracted Memory: Impaired Mood: Irritable Affect: Other (slight increase in range and intensity) Thought Process & Associations: Disorganized Thought Content: Bizarre thinking Hallucination Type: None Delusion Type: None Suicidal Ideation: No Suicidal Plan: No Suicidal Intention: No Homicidal Ideation: No Homicidal Plan: No Homicidal Intention: No Insight: Poor Judgment: Poor Results Vitals/IOs Vital Signs Date Time Temp Pulse Resp B/P (MAP) Pulse Ox O2 Delivery O2 Flow Rate FiO2 01/12/18 06:00 98.2 75 16 130/60 (83) 97 01/08/18 18:26 Room Air Intake and Output 01/12/18 01/12/18 01/13/18 08:00 16:00 00:00 Intake Total 60 ml Balance 60 ml Assessment & Plan Problem List: (1) DEMENTIA IN OTH DISEASES CLASSD ELSWHR W BEHAVIORAL DISTURB ICD Codes: F02.81 - DEMENTIA IN OTH DISEASES CLASSD ELSWHR W BEHAVIORAL DISTURB (2) ALZHEIMER'S DISEASE WITH LATE ONSET ICD Codes: G30.1 - ALZHEIMER'S DISEASE WITH LATE ONSET Assessment & Plan Continue current treatment plan Justification for Cont. Inpt. Patient would decompensate in a less restrictive setting Request HC Surrog/Guard Advoc?: Yes Naeem Renee DO Jan 12, 2018 15:04
[2018-01-12 18:14] VITALS: BP 116/73; PULSE 89; RESP 16; TEMP 98.7; O2SAT 98
[2018-01-12] MEDS: traZODone HCL 50 MG TAB PO PRN (21:07)
[2018-01-13 06:34] VITALS: BP 116/58; PULSE 81; RESP 16; TEMP 97.6; O2SAT 97
[2018-01-13] MEDS: amLODIPine BESYLATE 5 MG TAB PO SCH (07:46)
[2018-01-13] MEDS: QUEtiapine FUMARATE 25 MG TAB PO SCH ×3 (08:14→20:55)
--- NOTE | 2018-01-13 09:11 | HHI.PR ---
Subjective Remarks Patient seen and examined this morning. Temperature 97.6, pulse 18, respiratory rate 16, blood pressure 116/58, pulse ox 97 on room air. No acute events overnight. Patient is doing well. Plan for discharge to rehab facility on Sunday. No medical changes at this time. Objective Vitals Vital Signs Date Time Temp Pulse Resp B/P (MAP) Pulse Ox O2 Delivery O2 Flow Rate FiO2 01/13/18 06:34 97.6 81 16 116/58 (77) 97 01/12/18 18:14 98.7 89 16 116/73 (87) 98 I/O 01/12/18 01/12/18 01/12/18 01/13/18 01/13/18 01/13/18 07:00 15:00 23:00 07:00 15:00 23:00 Intake Total 60 ml 60 ml Balance 60 ml 60 ml Intake Oral 60 ml 60 ml Result Diagram: 01/10/18 0649 01/10/18 0644 Imaging Last Impressions Knee X-Ray 01/09/18 0000 Signed Impressions: Service Date/Time: Tuesday, January 09, 2018 21:38 - CONCLUSION: No acute abnormality seen. Sujit Loving MD Head CT 01/09/18 0000 Signed Impressions: Service Date/Time: Tuesday, January 09, 2018 21:45 - CONCLUSION: 1. No acute abnormality. 2. Atrophy. 3. Suspected widespread small vessel ischemic change in the white matter. Sujit Loving MD Elbow X-Ray 01/09/18 0000 Signed Impressions: Service Date/Time: Tuesday, January 09, 2018 21:40 - CONCLUSION: No acute disease. Sujit Loving MD Objective Remarks GEN: Well-developed, well-nourished patient. No acute distress. CV: Regular rate and rhythm without obvious murmurs LUNGS: Clear to auscultation bilaterally. Normal respiratory effort. No wheezes , rales, rhonchi. GI: Soft, nontender, nondistended. No palpable masses. Bowel sounds WNL. EXT: No edema. NEURO/PSYCH: Afocal. Awake, alert, and oriented x3. Appropriate insight and judgment. Medications and IVs Current Medications Medications (Trade) Dose Ordered Sig/Candice Route Start Time Stop Time Status Last Admin (Ativan) 0.5 mg Q12H PRN PO 01/08/18 22:30 Future hold (Ativan Inj) 0.5 mg Q12H PRN IM 01/08/18 22:30 Future hold 01/09/18 18:49 (Tylenol) 650 mg Q4H PRN PO 01/08/18 22:30 01/13/18 07:47 (Milk Of Magnesia Liq) 30 ml DAILY PRN PO 01/08/18 22:30 (Mag-Al Plus Susp Liq) 30 ml Q6H PRN PO 01/08/18 22:30 (Desyrel) 50 mg HS PRN PO 01/09/18 12:00 01/12/18 21:07 (Catapres) 0.1 mg Q4H PRN PO 01/09/18 12:30 01/10/18 16:00 (SEROquel) 12.5 mg DAILY@ PO 01/10/18 20:00 01/12/18 21:07 (Pill Splitter) 1 ea UNSCH PRN OTHER 01/10/18 15:30 (Norvasc) 5 mg DAILY PO 01/11/18 09:00 01/13/18 07:46 A/P Problem List: (1) Hypertension ICD Code: I10 - Essential (primary) hypertension (2) ALZHEIMER'S DISEASE WITH LATE ONSET ICD Code: G30.1 - ALZHEIMER'S DISEASE WITH LATE ONSET (3) DEMENTIA IN OTH DISEASES CLASSD ELSWHR W BEHAVIORAL DISTURB ICD Code: F02.81 - DEMENTIA IN OTH DISEASES CLASSD ELSWHR W BEHAVIORAL DISTURB Assessment and Plan An 87-year-old male who was brought in initially under [place] act that was court ordered. Patient has an increasing confusion and altered mental status. He is not admitted to inpatient psychiatry and further evaluation. Consulted for assistance in medical management. Dementia, advanced age -Managed by psychiatry team HTN -Unknown history of HTN however BP trend has been elevated throughout stay, stable at this time -Patient had clonidine as needed -Continue Norvasc 5 mg daily -Monitor BP trend Labs have been reviewed within normal. Hemoglobin A1c 5.1. Cholesterol LDL HDL within normal. DVT prop early ambulation Discharge Planning Plan for discharge to rehab facility on Sunday01/15/18 Christian Darden MD, R3 Jan 13, 2018 09:11
--- NOTE | 2018-01-13 14:17 | HHI.PYPN ---
Subjective Chief Complaint: patient demented with assaultive behavior Remarks Patient was seen and case discussed with nursing. Patient is alert and oriented 1. He is pleasant and in joking throughout the interview. He again asked me find know his age. Makes a joke about his watch. Behaving well on the unit. No psychotic symptoms elicited, no aggression. Mental Status Examination Appearance: Disheveled Consciousness: Alert Orientation: Person (vaguely) Motor Activity: Other (patient sitting in Lisa chair) Speech: Hesitant Language: Other (sparse) Fund of Knowledge: Poor Attention and Concentration: Easily Distracted Memory: Impaired Mood: Irritable Affect: Other (slight increase in range and intensity) Thought Process & Associations: Disorganized Thought Content: Bizarre thinking Hallucination Type: None Delusion Type: None Suicidal Ideation: No Suicidal Plan: No Suicidal Intention: No Homicidal Ideation: No Homicidal Plan: No Homicidal Intention: No Insight: Poor Judgment: Poor Results Vitals/IOs Vital Signs Date Time Temp Pulse Resp B/P (MAP) Pulse Ox O2 Delivery O2 Flow Rate FiO2 01/13/18 06:34 97.6 81 16 116/58 (77) 97 Intake and Output 01/13/18 01/13/18 01/14/18 08:00 16:00 00:00 Intake Total 360 ml Balance 360 ml Assessment & Plan Problem List: (1) DEMENTIA IN OTH DISEASES CLASSD ELSWHR W BEHAVIORAL DISTURB ICD Codes: F02.81 - DEMENTIA IN OTH DISEASES CLASSD ELSWHR W BEHAVIORAL DISTURB (2) ALZHEIMER'S DISEASE WITH LATE ONSET ICD Codes: G30.1 - ALZHEIMER'S DISEASE WITH LATE ONSET Assessment & Plan Continue current treatment plan Justification for Cont. Inpt. Patient would decompensate in a less restrictive setting Request HC Surrog/Guard Advoc?: Yes Naeem Renee DO Jan 13, 2018 14:17
[2018-01-13 18:16] VITALS: BP 130/62; PULSE 99; RESP 17; TEMP 97.2; O2SAT 100
[2018-01-13] MEDS: traZODone HCL 50 MG TAB PO PRN (20:55)
[2018-01-14 06:00] VITALS: BP 148/68; PULSE 58; RESP 16; TEMP 97.5; O2SAT 99
[2018-01-14] MEDS: amLODIPine BESYLATE 5 MG TAB PO SCH (08:24)
[2018-01-14] MEDS: QUEtiapine FUMARATE 25 MG TAB PO SCH ×2 (08:24→20:35)
--- NOTE | 2018-01-14 09:29 | PD.TTN ---
Patient Problems 1. Discharge planning 2. Medication compliance 3. Knowledge deficit 4. Lack of coping skills Progress Toward Goals Provider Present: Dr. William Kinsey Provider Input: pt expected to d/c to [facility] on 01/15. Documentation Scribe: Randy [place] OTR Jan 14, 2018 09:29
--- NOTE | 2018-01-14 10:01 | HHI.PYPN ---
Subjective Chief Complaint: patient demented with assaultive behavior Remarks Patient seen in his room with nurse, chart review, patient discussed with nurse , patient compliant medications. Patient remains calm cooperative quite pleasant, pleasantly confused. He is a few what he can do for me. It appears is a bed available tomorrow [place]. Thus probable discharge tomorrow to that facility Review of Systems Except as stated in HPI: all other systems reviewed are Neg Mental Status Examination Appearance: Disheveled Consciousness: Alert Orientation: Person (vaguely) Motor Activity: Other (patient sitting in Lisa chair) Speech: Hesitant Language: Other (sparse) Fund of Knowledge: Poor Attention and Concentration: Easily Distracted Memory: Impaired Mood: Irritable Affect: Other (slight increase in range and intensity) Thought Process & Associations: Disorganized Thought Content: Bizarre thinking Hallucination Type: None Delusion Type: None Suicidal Ideation: No Suicidal Plan: No Suicidal Intention: No Homicidal Ideation: No Homicidal Plan: No Homicidal Intention: No Insight: Poor Judgment: Poor Results Vitals/IOs Vital Signs Date Time Temp Pulse Resp B/P (MAP) Pulse Ox O2 Delivery O2 Flow Rate FiO2 01/14/18 06:00 97.5 58 16 148/68 (94) 99 Intake and Output 01/14/18 01/14/18 01/15/18 08:00 16:00 00:00 Intake Total 240 ml Balance 240 ml Assessment & Plan Problem List: (1) DEMENTIA IN OTH DISEASES CLASSD ELSWHR W BEHAVIORAL DISTURB ICD Codes: F02.81 - DEMENTIA IN OTH DISEASES CLASSD ELSWHR W BEHAVIORAL DISTURB (2) ALZHEIMER'S DISEASE WITH LATE ONSET ICD Codes: G30.1 - ALZHEIMER'S DISEASE WITH LATE ONSET Assessment & Plan Estimated LOS: days patient continues demented and confused with no behavior problems, compliant medications. Justification for Cont. Inpt. Bed available tomorrow and [facility] Discharge Planning See above Request HC Surrog/Guard Advoc?: Yes Sujit Kinsey MD Jan 14, 2018 10:01
--- NOTE | 2018-01-14 11:12 | HHI.PR ---
Subjective Remarks was asking for the date and day he needed to fix his watch correct time and date - was able to do it himself wanted me to call his to bring him better fitting pants Objective Vital Signs Date Time Temp Pulse Resp B/P (MAP) Pulse Ox O2 Delivery O2 Flow Rate FiO2 01/14/18 06:00 97.5 58 16 148/68 (94) 99 01/13/18 18:16 97.2 99 17 130/62 (84) 100 I/O 01/13/18 01/13/18 01/13/18 01/14/18 01/14/18 01/14/18 07:00 15:00 23:00 07:00 15:00 23:00 Intake Total 360 ml 240 ml 240 ml Balance 360 ml 240 ml 240 ml Intake Oral 360 ml 240 ml 240 ml Result Diagram: 01/10/18 0649 01/10/18 0644 Otoniel Cruz MD Jan 14, 2018 11:11
[2018-01-14 18:00] VITALS: BP 135/64; PULSE 75; RESP 16; TEMP 98; O2SAT 99
[2018-01-15 06:17] VITALS: BP 138/80; PULSE 59; RESP 16; TEMP 97.6; O2SAT 97
[2018-01-15] MEDS ORDERED: SERO25TA PO (09:05)
[2018-01-15] MEDS ORDERED: AMLO5 PO (09:05)
--- NOTE | 2018-01-15 09:07 | HHI.DS ---
Psychiatry Discharge Summary Inpatient Psychiatric care?: Yes Advance Directive: Yes Mental Health AdvanceDirective: Yes Health Care Proxy: No Admission Admission Date Jan 08, 2018 at 21:04 Admission Diagnosis: (1) DEMENTIA IN OTH DISEASES CLASSD ELSWHR W BEHAVIORAL DISTURB ICD Code: F02.81 - DEMENTIA IN OTH DISEASES CLASSD ELSWHR W BEHAVIORAL DISTURB (2) ALZHEIMER'S DISEASE WITH LATE ONSET ICD Code: G30.1 - ALZHEIMER'S DISEASE WITH LATE ONSET Brief History Patient is an 87-year-old male who comes her under Bajwa act. That states "court ordered". It appears there is a court order allowing patient's what appears is his guardian have him placed in a local penitentiary. However I also appears patient has been showing increased confusion and his home. This has been going on for a period of time and was serious enough and threatening enough the patient's that she did move out. However she and a son came back to the home of the patient is living and notices to be marked disarray nearly uninhabitable. And the patient more confused aggressive towards his . Patient seen screened in the ED, urine toxicology negative. Patient medically 2600. Patient seen on the unit with nurse Ball. Is a thin slender somewhat disheveled male sitting in Lisa chair he is alert oriented only to self angry irritable demanding to be discharged being quite disrespectful and somewhat scatological towards his . He does not remember any significant behaviors that led to this hospitalization. It appears she has been carrying a diagnosis of dementia for a period of time. There is no further history with this patient of alcohol or drug use, past psychiatric history. We do need to contact patient's family to gain further information. Thus at this time patient does meet criteria for involuntary psychiatric hospitalization of the Bajwa act I'll do first opinion request second opinion. I feel patient does not have capacity thus I'll ask for healthcare surrogate and a guardian advocate. We will have hospitalist also consult with us. Tobacco Use In Past 30 Days: Cognitive Impairment Alcohol Use: Never Hospital Course Patient's hospital course was uneventful, patient showing no significant behavioral problems from day 1, is in compliant with his medications. His cognitive disabilities confusion disorientation remain consistent though he is a pleasant with us. He denies suicidality homicidality voices or visions. At this time I feel patient reached maximum benefit of this hospitalization. Is a bed available for today at [facility] Patient to be discharged today to that facility Results Blood Pressure 138 / 80 Vital Signs Date Time Temp Pulse Resp B/P (MAP) Pulse Ox O2 Delivery O2 Flow Rate FiO2 01/15/18 06:17 97.6 59 16 138/80 (99) 97 Laboratory Results Test 01/09/18 10:10 01/10/18 06:44 Cholesterol Level 180 MG/DL (120-200) HDL Cholesterol 64.7 MG/DL (40.0-60.0) LDL Cholesterol 98 MG/DL (0-99) Triglycerides Level 89 MG/DL (42-150) Hemoglobin A1c 5.1 % (4.3-6.0) Summary of Procedures None done Imaging Last Impressions Knee X-Ray 01/09/18 0000 Signed Impressions: Service Date/Time: Tuesday, January 09, 2018 21:38 - CONCLUSION: No acute abnormality seen. Sujit Loving MD Head CT 01/09/18 0000 Signed Impressions: Service Date/Time: Tuesday, January 09, 2018 21:45 - CONCLUSION: 1. No acute abnormality. 2. Atrophy. 3. Suspected widespread small vessel ischemic change in the white matter. Sujit Loving MD Elbow X-Ray 01/09/18 0000 Signed Impressions: Service Date/Time: Tuesday, January 09, 2018 21:40 - CONCLUSION: No acute disease. Sujit Loving MD Pending results at discharge: No Medications # of Antipsychotic meds at D/C: 1 Approp Antipsych med options 1 - Minimum of three failed multiple trials of monotherapy. 2 - Documented plan to taper to monotherapy due to previous use of multiple meds OR cross-taper in progress at D/C. 3 - Documentation of augmentation of Clozapine. 4 - Justification other than those listed in allowable values 1-3, document here : Discharge Discharge Date: Jan 15, 2018 Discharge Diagnosis: (1) ALZHEIMER'S DISEASE WITH LATE ONSET Diagnosis: Principal ICD Code: G30.1 - ALZHEIMER'S DISEASE WITH LATE ONSET (2) DEMENTIA IN OTH DISEASES CLASSD ELSWHR W BEHAVIORAL DISTURB Diagnosis: Principal ICD Code: F02.81 - DEMENTIA IN OTH DISEASES CLASSD ELSWHR W BEHAVIORAL DISTURB Pt Condition on Discharge: Deteriorating Discharge Disposition: Discharge to SNF Discharge Instructions Diet Instructions: Pureed Diet Activities you can perform: See Additionl Instruction Other Activity Instructions: Per PT and OT recommendations Scheduled Appointment: [facility] Discharge Time > 30 minutes Mental Status Examination Appearance: Disheveled Consciousness: Alert Orientation: Person (vaguely) Motor Activity: Other (patient sitting in Lisa chair) Speech: Hesitant Language: Other (sparse) Fund of Knowledge: Poor Attention and Concentration: Easily Distracted Memory: Impaired Mood: Irritable Affect: Other (slight increase in range and intensity) Thought Process & Associations: Disorganized Thought Content: Bizarre thinking Hallucination Type: None Delusion Type: None Suicidal Ideation: No Suicidal Plan: No Suicidal Intention: No Homicidal Ideation: No Homicidal Plan: No Homicidal Intention: No Insight: Poor Judgment: Poor Discharge/Advance Care Plan Health Problems: (1) DEMENTIA IN OTH DISEASES CLASSD ELSWHR W BEHAVIORAL DISTURB (2) ALZHEIMER'S DISEASE WITH LATE ONSET Goals to promote your health * To prevent worsening of your condition and complications * To maintain your health at the optimal level Directions to meet your goals Take your medications as prescribed Follow your dietary instruction Follow activity as directed Keep your appointments as scheduled Take your immunizations and boosters as scheduled If your symptoms worsen call your PCP, if no PCP go to Urgent Care Center or Emergency Room For 07/05 questions related to your inpatient stay or results of tests pending at discharge, please contact Dr. Sujit Kinsey at Smoking is Dangerous to Your Health. Avoid second hand smoking Sujit Kinsey MD Jan 15, 2018 09:07
[2018-01-15] MEDS: QUEtiapine FUMARATE 25 MG TAB PO SCH (09:10)
[2018-01-15] MEDS: amLODIPine BESYLATE 5 MG TAB PO SCH (09:10)
--- NOTE | 2018-01-17 13:27 | PD.PSY.CON ---
Provisional Diagnosis Admission Date Jan 08, 2018 at 21:04 [place]. Dementia and other disease with behavioral disturbance FiO2 0.81, Alzheimer's disease late onset g 30.1 History of Present Illness Service Psychiatry Consult Requested By Psychiatry Reason for Consult Second opinion Primary Care Physician Elpidio Shukla M.D. HPI The entry. Patient seen 01/10/2018 for second opinion. Patient is an 87-year-old male who comes her under Bajwa act. That states "court ordered". It appears there is a court order allowing patient's what appears is his guardian have him placed in a local assisted. However I also appears patient has been showing increased confusion and his home. This has been going on for a period of time and was serious enough and threatening enough the patient's that she did move out. However she and a son came back to the home of the patient is living and notices to be marked disarray nearly uninhabitable. And the patient more confused aggressive towards his . Patient seen screened in the ED, urine toxicology negative. Patient medically 2600. Patient seen on the unit with nurse Lizzy. Is a thin slender somewhat disheveled male sitting in Lisa chair he is alert oriented only to self angry irritable demanding to be discharged being quite disrespectful and somewhat scatological towards his . He does not remember any significant behaviors that led to this hospitalization. It appears she has been carrying a diagnosis of dementia for a period of time. There is no further history with this patient of alcohol or drug use, past psychiatric history. We do need to contact patient's family to gain further information. Thus at this time patient does meet criteria for involuntary psychiatric hospitalization of the Bajwa act I'll do first opinion request second opinion. I feel patient does not have capacity thus I'll ask for healthcare surrogate and a guardian advocate. We will have hospitalist also consult with us. The patient was seen today for psychiatric evaluation of second opinion. The patient is very irritable, refusing to provide any information, stating that he does not need to speak with me and he does not have a reason to be here. Past Family Social History Coded Allergies: No Known Allergies (Unverified , 01/08/18) Active Scripts Quetiapine (Seroquel) 25 Mg Tab, 12.5 MG PO DAILY@0814 [place], #30 TAB 0 Refills Prov:Sujit Kinsey MD 01/15/18 Amlodipine (Norvasc) 5 Mg Tab, 5 MG PO DAILY for health, #30 TAB 0 Refills Prov:Sujit Kinsey MD 01/15/18 Discontinued Reported Medications Lorazepam (Lorazepam) 0.5 Mg Tab, 0.5 MG PO Q6H Y for ANXIETY, TAB 0 Refills 01/08/18 Patient's Strengths (min. 2) Patient with supportive family able to access healthcare Physical Exam Vital Signs Vital Signs Date Time Temp Pulse Resp B/P (MAP) Pulse Ox O2 Delivery O2 Flow Rate FiO2 01/15/18 06:17 97.6 59 16 138/80 (99) 97 Mental Status Examination Appearance: Disheveled Consciousness: Alert Orientation: Person (vaguely) Motor Activity: Other (patient sitting in Lisa chair) Speech: Hesitant Language: Other (sparse) Fund of Knowledge: Poor Attention and Concentration: Easily Distracted Memory: Impaired Mood: Irritable Affect: Other (slight increase in range and intensity) Thought Process & Associations: Disorganized Thought Content: Bizarre thinking Hallucination Type: None Delusion Type: None Suicidal Ideation: No Suicidal Plan: No Suicidal Intention: No Homicidal Ideation: No Homicidal Plan: No Homicidal Intention: No Insight: Poor Judgment: Poor Assessment & Plan Problem List: (1) DEMENTIA IN OTH DISEASES CLASSD ELSWHR W BEHAVIORAL DISTURB ICD Codes: F02.81 - DEMENTIA IN OTH DISEASES CLASSD ELSWHR W BEHAVIORAL DISTURB Assessment & Plan: I agree and concur with Dr. Kinsey's assessment and plan. (2) ALZHEIMER'S DISEASE WITH LATE ONSET ICD Codes: G30.1 - ALZHEIMER'S DISEASE WITH LATE ONSET Assessment & Plan Estimated LOS: days Request HC Surrog/Guard Advoc?: Yes Geovany Tristan MD Jan 17, 2018 13:27
== END 2018-01-15 09:50 | DRG 57 ==
LOC: NEPD 16:28 → NEDA 21:04 → H260 21:31 → H4EA 01-11 16:54
PROVIDERS: ADMIT Psychiatry & Neurology Psychiatry; ATTEND Psychiatry & Neurology Psychiatry
DX: G30.1 Alzheimer's disease with late onset (principal); F02.81 Dementia in other diseases classified elsewhere, unspecified severity, with behavioral disturbance; Z68.1 Body mass index [BMI] 19.9 or less, adult; I10 Essential (primary) hypertension; Z66 Do not resuscitate; R13.10 Dysphagia, unspecified
CPT/HCPCS: 70450; 73070; 73560; 80053; 80061; 80307; 81001; 83036; 83735; 84100; 84439; 84443; 85025; 96372; J1630; J2060

== ENCOUNTER 2018-02-27 17:53 | Inpatient (IN) | END 2018-03-06 16:18 | DRG 57 | DX: G30.1 Alzheimer's disease with late onset (principal); F02.81 Dementia in other diseases classified elsewhere, unspecified severity, with behavioral disturbance; K76.89 Other specified diseases of liver; F41.9 Anxiety disorder, unspecified; I10 Essential (primary) hypertension; R45.1 Restlessness and agitation; M54.5 Low back pain; S01.112A Laceration without foreign body of left eyelid and periocular area, initial encounter; Y92.230 Patient room in hospital as the place of occurrence of the external cause; W01.198A Fall on same level from slipping, tripping and stumbling with subsequent striking against other object, initial encounter; R22.2 Localized swelling, mass and lump, trunk; R05 Cough; R13.10 Dysphagia, unspecified; N20.0 Calculus of kidney; K57.30 Diverticulosis of large intestine without perforation or abscess without bleeding; Z79.899 Other long term (current) drug therapy ==

== ENCOUNTER 2018-03-11 08:22 | Inpatient (IN) | payer MEDICARE ==
[~2018-03-11] VITALS: Ht 152.4 cm; Wt 54.0 kg
[~2018-03-11 08:22] MED LIST: AMLO5 PO; ENSULIQ7 PO; KETOC2%T TOPICAL; LIDO1ADH4 T-DERMAL; SERO25TA PO
[2018-03-11 08:31] VITALS: BP 172/74; PULSE 75; RESP 17; TEMP 98.2; O2SAT 100
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
[2018-03-11 15:25] VITALS: BP 125/62; PULSE 75; RESP 18; O2SAT 100
[2018-03-11 17:32] LABS: BASOPHIL % 0.6 % (0.0-2.0); EOSINOPHIL # 0.2 TH/MM3 (0-0.4); EOSINOPHIL % 2.7 % (0.0-4.0); HEMATOCRIT 42.6 % (39.0-51.0); HEMOGLOBIN 14.2 GM/DL (13.0-17.0); LYMPH % 24.6 % (9.0-44.0); LYMPHOCYTE # 1.6 TH/MM3 (1.0-4.8); MEAN CELL VOLUME 93.2 FL (80.0-100.0); MEAN CORPUSCULAR HGB CONC 33.3 % (32.0-36.0); MEAN PLATELET VOLUME 8.5 FL (7.0-11.0); MONOCYTE # 0.8 TH/MM3 (0-0.9); NEUT % 60.1 % (16.0-70.0); PLATELET COUNT 286 TH/MM3 (150-450); RED BLOOD COUNT 4.57 MIL/MM3 (4.50-5.90); RED CELL DISTRIBUTION WIDTH 12.9 % (11.6-17.2); WHITE BLOOD COUNT 6.6 TH/MM3 (4.0-11.0)
[2018-03-11 17:34] LABS: AMORPHOUS SEDIMENT, URINE OCC; BACTERIA, URINE OCC /hpf; BILIRUBIN, URINE NEG (NEG); BLOOD, URINE NEG (NEG); GLUCOSE,URINE NEG (NEG); KETONE, URINE NEG (NEG); MUCUS URINE FEW /lpf (OCC); NITRITE,URINE NEG (NEG); URINE COLOR YELLOW (YELLW/STRAW); URINE LEUKOCYTE ESTERASE NEG (NEG)
[2018-03-11 17:53] LABS: ALBUMIN 3.6 GM/DL (3.4-5.0); ALT (GPT) 17 U/L (12-78); AST (GOT) 17 U/L (15-37); BICARBONATE 30.6 MEQ/L (21.0-32.0); BLOOD UREA NITROGEN 12 MG/DL (7-18); CALCIUM 9.1 MG/DL (8.5-10.1); CHLORIDE 102 MEQ/L (98-107); CREATININE 0.96 MG/DL (0.60-1.30); GLOMERULAR FILTRATION RATE 74 ML/MIN (>89); GLUCOSE,RANDOM 105 MG/DL (74-106); SODIUM (NA) 140 MEQ/L (136-145)
[2018-03-11 18:03] LABS: ALKALINE PHOSPHATASE 99 U/L (45-117); TOTAL BILIRUBIN ADULT 0.5 MG/DL (0.2-1.0); TOTAL PROTEIN 7.7 GM/DL (6.4-8.2)
[2018-03-11] MEDS ORDERED: ALUMINUM/MAGNESIUM/SIMETH 30 ML CUP PO PRN (18:15)
[2018-03-11] MEDS ORDERED: ACETAMINOPHEN 325 MG TAB PO PRN (18:15)
[2018-03-11] MEDS ORDERED: MAGNESIUM HYDROXIDE SUSP 30 ML CUP PO PRN (18:15)
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
[2018-03-11 19:40] VITALS: BP_SYST 180; PULSE 90; RESP 18; TEMP 98.4; O2SAT 96
[2018-03-11] MEDS ORDERED: cloNIDine HCL 0.1 MG TAB PO ONE (20:45)
[2018-03-12 05:57] VITALS: BP 156/73; PULSE 77; RESP 16; TEMP 98.3; O2SAT 96
[2018-03-12] MEDS ORDERED: KETOCONAZOLE 2% SHAMPOO 120 ML BTL TOPICAL SCH (13:45)
[2018-03-12] MEDS ORDERED: PILL SPLITTER OTHER PRN (14:00)
[2018-03-12] MEDS ORDERED: REMOVE OLD PATCH T-DERMAL SCH (14:00)
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
[2018-03-12] MEDS: QUEtiapine FUMARATE 25 MG TAB PO SCH (17:20)
[2018-03-12 17:31] VITALS: BP 141/65; PULSE 70; RESP 16; TEMP 97.4; O2SAT 97
[2018-03-12] MEDS ORDERED: LACTOSE REDUCED FOOD PO SCH (18:00)
[2018-03-12] MEDS ORDERED: QUEtiapine FUMARATE 25 MG TAB PO SCH (18:00)
[2018-03-12] MEDS: REMOVE OLD PATCH T-DERMAL SCH (21:00)
[2018-03-13] MEDS: QUEtiapine FUMARATE 25 MG TAB PO SCH ×3 (09:00→18:32)
[2018-03-13] MEDS: amLODIPine BESYLATE 5 MG TAB PO SCH (09:00)
[2018-03-13] MEDS: REMOVE OLD PATCH T-DERMAL SCH ×2 (09:00→20:41)
[2018-03-13] MEDS: LIDOCAINE HCL 5% PATCH T-DERMAL SCH (09:00)
--- NOTE | 2018-03-13 13:31 | HHI.PYPN ---
Subjective Chief Complaint: Aggressive at senior living Remarks Patient seen in his room with RN, chart reviewed, patient compliant medication. Patient continues irritable with female staff. Giving fairly aggressive and resistant to interventions. Per patient seen by me today laying in his bed on his back with covers to his chin saying that he just wants to rest of the staff to leave him alone not talk so loudly, not slamming the doors. Patient seemed to focus more on the female staff. See medication adjustment above. Continues diffusely confused and disoriented Review of Systems Except as stated in HPI: all other systems reviewed are Neg Mental Status Examination Appearance: Appropriate Consciousness: Alert Orientation: Person, Place (Somewhat vague), Date/Time (Somewhat vague) Motor Activity: Other (Sitting on stretcher) Speech: Pressured Language: Adequate Fund of Knowledge: Poor Attention and Concentration: Easily Distracted Memory: Impaired Mood: Irritable Affect: Irritable Thought Process & Associations: Loose associations Thought Content: Appropriate Hallucination Type: None Delusion Type: None Suicidal Ideation: No Suicidal Plan: No Suicidal Intention: No Homicidal Ideation: No Homicidal Plan: No Homicidal Intention: No Insight: Poor Judgment: Poor Results Vitals/IOs Vital Signs Date Time Temp Pulse Resp B/P (MAP) Pulse Ox O2 Delivery O2 Flow Rate FiO2 03/12/18 17:31 97.4 70 16 141/65 (90) 97 03/11/18 15:25 Room Air Assessment & Plan Problem List: (1) DEMENTIA IN OTH DISEASES CLASSD ELSWHR W BEHAVIORAL DISTURB ICD Codes: F02.81 - DEMENTIA IN OTH DISEASES CLASSD ELSWHR W BEHAVIORAL DISTURB (2) ALZHEIMER'S DISEASE WITH LATE ONSET ICD Codes: G30.1 - ALZHEIMER'S DISEASE WITH LATE ONSET Assessment & Plan Estimated LOS: days patient continues demented and confused with some behavioral issues focused more towards a female staff. She medication adjustments above Justification for Cont. Inpt. At this time patient would decompensate a place to the lower level of care Discharge Planning To be determined Request HC Surrog/Guard Advoc?: Yes Sujit Kinsey MD March 13, 2018 13:31
[2018-03-13 18:18] VITALS: BP 166/77; PULSE 89; RESP 18; TEMP 97.6; O2SAT 97
[2018-03-14] MEDS: QUEtiapine FUMARATE 25 MG TAB PO SCH ×3 (08:00→18:19)
[2018-03-14] MEDS: amLODIPine BESYLATE 5 MG TAB PO SCH (08:00)
[2018-03-14] MEDS: REMOVE OLD PATCH T-DERMAL SCH ×2 (08:00→21:00)
[2018-03-14] MEDS: LIDOCAINE HCL 5% PATCH T-DERMAL SCH (08:01)
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
[2018-03-14 20:00] VITALS: BP 134/72; PULSE 72; RESP 18
[2018-03-15] MEDS: amLODIPine BESYLATE 5 MG TAB PO SCH (09:00)
[2018-03-15] MEDS: REMOVE OLD PATCH T-DERMAL SCH (09:00)
[2018-03-15] MEDS: LIDOCAINE HCL 5% PATCH T-DERMAL SCH (09:00)
[2018-03-15] MEDS: QUEtiapine FUMARATE 25 MG TAB PO SCH ×2 (09:00→13:05)
[2018-03-15 09:01] LABS: BICARBONATE 30.2 MEQ/L (21.0-32.0); BLOOD UREA NITROGEN 14 MG/DL (7-18); CALCIUM 9.4 MG/DL (8.5-10.1); CHLORIDE 102 MEQ/L (98-107); CREATININE 0.89 MG/DL (0.60-1.30); GLOMERULAR FILTRATION RATE 81 ML/MIN (>89); GLUCOSE,RANDOM 95 MG/DL (74-106); SODIUM (NA) 141 MEQ/L (136-145)
[2018-03-15 09:03] LABS: CHOLESTEROL 148 MG/DL (120-200); TRIGLYCERIDES 122 MG/DL (42-150)
[2018-03-15 09:07] LABS: CHOLESTEROL/ HDL RATIO 2.29 RATIO; HDL CHOLESTEROL 64.6 MG/DL (40.0-60.0); LDL CHOLESTEROL 59 MG/DL (0-99)
--- NOTE | 2018-03-15 10:11 | HHI.PYPN ---
Subjective Chief Complaint: Aggressive at [facility] Remarks Patient seen in his room with nurse Mendez, patient alert continues diffusely confused and disoriented now demanding to leave by 2 PM today so he can visit her friend in the hospital though he does not know the friend's name why he is in the hospital what hospital he is in. This sounds underlying irritability lability with him. We will increase Seroquel to 50 mg twice daily 9 AM and 4 PM Review of Systems Except as stated in HPI: all other systems reviewed are Neg Mental Status Examination Appearance: Appropriate Consciousness: Alert Orientation: Person, Place (Does not know the location), Date/Time (February 2018) Motor Activity: Other (No motor abnormalities noted) Speech: Unremarkable Language: Adequate Fund of Knowledge: Inadequate Attention and Concentration: Easily Distracted Memory: Impaired Mood: Irritable Affect: Irritable Thought Process & Associations: Loose associations Thought Content: Appropriate Hallucination Type: None Delusion Type: None Suicidal Ideation: No Homicidal Ideation: No Insight: Poor Judgment: Poor Results Labs Test 03/15/18 07:22 Blood Urea Nitrogen 14 MG/DL Creatinine 0.89 MG/DL Random Glucose 95 MG/DL Calcium Level 9.4 MG/DL Sodium Level 141 MEQ/L Potassium Level 3.7 MEQ/L Chloride Level 102 MEQ/L Carbon Dioxide Level 30.2 MEQ/L Anion Gap 9 MEQ/L Estimat Glomerular Filtration Rate 81 ML/MIN Triglycerides Level 122 MG/DL Cholesterol Level 148 MG/DL LDL Cholesterol 59 MG/DL HDL Cholesterol 64.6 MG/DL Cholesterol/HDL Ratio 2.29 RATIO Vitals/IOs Vital Signs Date Time Temp Pulse Resp B/P (MAP) Pulse Ox O2 Delivery O2 Flow Rate FiO2 03/14/18 20:00 72 18 134/72 (92) 03/13/18 18:18 97.6 97 03/11/18 15:25 Room Air Assessment & Plan Problem List: (1) ALZHEIMER'S DISEASE WITH LATE ONSET ICD Codes: G30.1 - ALZHEIMER'S DISEASE WITH LATE ONSET (2) DEMENTIA IN OTH DISEASES CLASSD ELSWHR W BEHAVIORAL DISTURB ICD Codes: F02.81 - DEMENTIA IN OTH DISEASES CLASSD ELSWHR W BEHAVIORAL DISTURB Assessment & Plan Estimated LOS: days patient continues demented confused and somewhat labile see medication adjustment above Justification for Cont. Inpt. At this time patient would decompensate a place to a lower level of care Discharge Planning To be determined Request HC Surrog/Guard Advoc?: Yes Sujit Knisey MD Mar 15, 2018 10:11
[2018-03-15] MEDS ORDERED: SERO25TA PO (13:48)
[2018-03-15] MEDS ORDERED: AMLO5 PO (13:48)
[2018-03-15] MEDS ORDERED: KETOC2%T TOPICAL (13:48)
[2018-03-15] MEDS ORDERED: LIDO1ADH4 T-DERMAL (13:48)
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
[2018-03-15] MEDS ORDERED: QUEtiapine FUMARATE 25 MG TAB PO SCH (16:00)
[2018-03-15 17:01] LABS: HEMOGLOBIN A1C 5.1 % (4.3-6.0)
== END 2018-03-15 14:15 | DRG 57 ==
LOC: NEPD 08:22 → NEDA 18:11 → H250 19:18
PROVIDERS: ADMIT Psychiatry & Neurology Psychiatry; ATTEND Psychiatry & Neurology Psychiatry
DX: G30.1 Alzheimer's disease with late onset (principal); F02.81 Dementia in other diseases classified elsewhere, unspecified severity, with behavioral disturbance; H91.90 Unspecified hearing loss, unspecified ear; F41.9 Anxiety disorder, unspecified; S01.112D Laceration without foreign body of left eyelid and periocular area, subsequent encounter; Y04.2XXD Assault by strike against or bumped into by another person, subsequent encounter; Z87.891 Personal history of nicotine dependence
CPT/HCPCS: 80048; 80053; 80061; 80307; 81001; 83036; 84443; 85025; 99285